=== PATIENT | female | born 1955 | race Hispanic/Latino ===

== ENCOUNTER 2018-08-03 23:13 | Emergency (ER) | payer MEDICAID ==
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
[2018-08-04 00:31] LABS: Basophils % (Auto) 0.2 % (0.0-1.8); Hematocrit 39.4 % (30.3-42.9); Hemoglobin 13.4 gm/dl (10.1-14.3); Lymphocytes # (Auto) 1.7 K/mm3 (1.2-5.4); Lymphocytes % (Auto) 18.7 % (13.4-35.0); Mean Corpuscular HGB Conc 34 % (30-34); Mean Corpuscular Volume 91 fl (79-97); Monocytes # (Auto) 0.9 K/mm3 (0.0-0.8); Monocytes % (Auto) 9.7 % (0.0-7.3); Platelet Count 228 K/mm3 (140-440); Red Blood Count 4.31 M/mm3 (3.65-5.03); Red Cell Distribution Width 15.1 % (13.2-15.2)
[2018-08-04] MEDS ORDERED: GEODON IM ONE (00:32)
[2018-08-04] MEDS ORDERED: WATER FOR INJ Sterile (PF) 10 ML ONE (00:46)
[2018-08-04 00:55] LABS: BUN/Creatinine Ratio 14; Blood Urea Nitrogen 11 mg/dL (7-17); Calcium 9.1 mg/dL (8.4-10.2); Hemolysis Index 2
[2018-08-04 00:58] LABS: Bilirubin,Urine NEG (Negative); Blood,Urine NEG (Negative); Color,Urine Yellow (Yellow); Protein,Urine <15 mg/dL mg/dL (Negative); Urobilinogen,Urine < 2.0 mg/dL (<2.0)
[2018-08-04 01:13] LABS: Amphetamine Screen,Urine PRESUMPTIVE NEGATIVE; Benzodiazepines Screen,Urine PRESUMPTIVE NEGATIVE; Cannabinoid Screen,Urine PRESUMPTIVE NEGATIVE; Cocaine Screen,Urine PRESUMPTIVE NEGATIVE; Methadone Screen,Urine PRESUMPTIVE NEGATIVE; Opiate Screen,Urine PRESUMPTIVE NEGATIVE
[2018-08-04 01:29] LABS: RBC,Urine < 1.0 /HPF (0.0-6.0)
[2018-08-04 08:40] VITALS: BP 161/90
== END 2018-08-04 12:23 ==
LOC: ED 23:13 → EEVIPCON 23:13 → 3A 08-04 10:00 → UNDOADMIN 08-04 10:00 → ED 08-04 12:23
DX: F23 Brief psychotic disorder (principal); F91.1 Conduct disorder, childhood-onset type; R45.6 Violent behavior; F32.9 Major depressive disorder, single episode, unspecified; I10 Essential (primary) hypertension; J44.9 Chronic obstructive pulmonary disease, unspecified; E03.9 Hypothyroidism, unspecified; F41.9 Anxiety disorder, unspecified; F17.200 Nicotine dependence, unspecified, uncomplicated
CPT/HCPCS: 36415; 80048; 80307; 81001; 84443; 85025; 96372; 99284; G0480; J3486; 80320

== ENCOUNTER 2018-08-04 10:20 | Inpatient (IN) | payer MEDICARE ==
[2018-08-04] MEDS: ATIVAN IM PRN (12:57)
[2018-08-04] MEDS: HALDOL IM PRN (12:57)
[2018-08-04] MEDS ORDERED: TYLENOL PO PRN (22:15)
[2018-08-04] MEDS ORDERED: APRESOLINE PO PRN (22:17)
[2018-08-04] MEDS ORDERED: DESYREL PO PRN (23:00)
[2018-08-05] MEDS: ARICEPT PO SCH ×2 (00:26→21:59)
[2018-08-05] MEDS: SINGULAIR PO SCH ×2 (00:27→22:01)
[2018-08-05] MEDS: CATAPRES PO SCH ×3 (00:30→22:00)
[2018-08-05] MEDS: PROTONIX PO SCH ×3 (00:31→22:01)
[2018-08-05] MEDS: ZESTRIL PO SCH ×2 (00:32→22:01)
[2018-08-05] MEDS: DUONEB *Not for PRN Use IH SCH ×4 (00:38→19:03)
[2018-08-05] MEDS: SYNTHROID PO SCH (07:25)
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
[2018-08-05] MEDS: HALDOL IM PRN (08:15)
[2018-08-05] MEDS ORDERED: EFFEXOR XR PO SCH (10:00)
[2018-08-05] MEDS ORDERED: CLOZAPINE 50 MG PO SCH (10:00)
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
[2018-08-05] MEDS: FEOSOL PO SCH (19:10)
[2018-08-05] MEDS ORDERED: CLOZAPINE 300 MG PO SCH (22:00)
[2018-08-06] MEDS: SYNTHROID PO SCH ×2 (06:10→06:48)
--- NOTE | 2018-08-06 09:47 | Progress Note ---
Subjective Date of service: 08/06/18 Principal diagnosis: Paranoid Schizophrenia Subjective Comment: The patient continues to be very agitated, disorganized, verbally and physically aggressive. She has not responded to PRN medications. Clozaril is not available in this hospital hence she has not been re-started on it. Objective - Criteria for Continued Treatment Criteria for Continued Treatment: Improving Level of Functioning, Stablizing Level of Functioning, Improving Emotional/Socia - Mental Status Mental Status: Alert - Objective Observation Participation Level: None Reason(s) For Not Participating: Behaviors Assessment and Plan - Patient Problems (1) Schizophrenia Current Visit: No Status: Acute Qualifiers: Schizophrenia type: unspecified Qualified Code(s): F20.9 - Schizophrenia, unspecified Plan to address problem: Patient will be admitted for inpatient psychiatric evaluation, medication adjustment and close monitoring The patient's behavior, mood, sleep and appetite will be closely monitored. Patient will be enrolled in individual and group therapeutic sessions and encouraged to attend. Patient will be provided with a safe and structured environment. Patient's physical health needs will be addressed by the Hospitalist. Social Assessment will be completed and the Shrimp Peeling Machine Operator will work with patient and family to ensure a suitable and safe disposition Medication adjustment will be made as clinically indicated: Will decrease Venlafaxine to 150mg qd as she appears to be manic Will increase Clonazepam to 1mg tid Start Depakote ER 500mg bid for mood stabilization Start Risperidone 2mg bid for severe psychosis Consider transferring patient out to a hospital she can get Clozaril.
[2018-08-06] MEDS: DUONEB *Not for PRN Use IH SCH ×2 (10:37→17:31)
[2018-08-06] MEDS: EFFEXOR XR PO SCH (13:34)
[2018-08-06] MEDS: RisperDAL PO SCH ×2 (13:35→22:47)
[2018-08-06] MEDS: FEOSOL PO SCH (13:35)
[2018-08-06] MEDS: PROTONIX PO SCH ×2 (13:35→22:46)
[2018-08-06] MEDS: CATAPRES PO SCH ×2 (14:01→22:46)
[2018-08-06] MEDS: ARICEPT PO SCH (22:46)
[2018-08-06] MEDS: ZESTRIL PO SCH (22:47)
[2018-08-06] MEDS: SINGULAIR PO SCH (22:47)
[2018-08-07] MEDS: BENADRYL IM PRN ×2 (04:42→19:54)
[2018-08-07] MEDS: ATIVAN IM PRN (04:42)
[2018-08-07] MEDS: GEODON IM PRN ×2 (04:44→19:54)
[2018-08-07] MEDS: SYNTHROID PO SCH (06:03)
[2018-08-07] MEDS: DUONEB *Not for PRN Use IH SCH ×4 (09:20→22:20)
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
[2018-08-07] MEDS ORDERED: WATER FOR INJ Sterile (PF) 10 ML ONE (16:17)
[2018-08-07] MEDS: CATAPRES PO SCH ×2 (17:35→23:47)
[2018-08-07] MEDS: RisperDAL PO SCH ×2 (17:36→22:31)
[2018-08-07] MEDS: EFFEXOR XR PO SCH (17:36)
[2018-08-07] MEDS: PROTONIX PO SCH (17:36)
[2018-08-07] MEDS: FEOSOL PO SCH (17:36)
[2018-08-07] MEDS: SINGULAIR PO SCH (22:31)
[2018-08-07] MEDS: ZESTRIL PO SCH (22:32)
[2018-08-07] MEDS: ARICEPT PO SCH (22:32)
--- NOTE | 2018-08-08 08:59 | Progress Note ---
Subjective Date of service: 08/08/18 Principal diagnosis: Paranoid Schizophrenia Subjective Comment: The patient continues to be very agitated, disorganized, verbally and physically aggressive. She is requiring multiple PRN medications. Clozaril is not available in this hospital hence she has not been re-started on it. Prescription for Clozaril was written so patient's son can get the Clozaril from outside pharmacy but he is out out of [place] currently. Will attempt to source the medication l ocally. Objective - Criteria for Continued Treatment Criteria for Continued Treatment: Improving Level of Functioning, Reducing Isolative Behaviors, Improving Treatment / Medication Compliance, Stablizing Level of Functioning, Improving Emotional/Socia - Mental Status Mental Status: Alert - Objective Observation Participation Level: None Reason(s) For Not Participating: Behaviors Assessment and Plan - Patient Problems (1) Schizophrenia Current Visit: No Status: Acute Qualifiers: Schizophrenia type: paranoid schizophrenia Qualified Code(s): F20.0 - Paranoid schizophrenia Plan to address problem: Patient will be admitted for inpatient psychiatric evaluation, medication adjustment and close monitoring The patient's behavior, mood, sleep and appetite will be closely monitored. Patient will be enrolled in individual and group therapeutic sessions and encouraged to attend. Patient will be provided with a safe and structured environment. Patient's physical health needs will be addressed by the Hospitalist. Social Assessment will be completed and the Administrative Assistant will work with patient and family to ensure a suitable and safe disposition Medication adjustment will be made as clinically indicated: Will decrease and discontinue Venlafaxine as she appears to be manic Will continue Clonazepam to 1mg tid Continue Depakote ER 500mg bid for mood stabilization Continue Risperidone 2mg bid for severe psychosis Will source for Clozaril at local pharmacy. CBC and CMP were ordered yesterday
[2018-08-08] MEDS: BENADRYL IM PRN (11:03)
[2018-08-08] MEDS: ATIVAN IM PRN (11:04)
[2018-08-08] MEDS: DUONEB *Not for PRN Use IH SCH ×3 (12:06→22:42)
[2018-08-08 12:26] LABS: Basophils # (Auto) 0.1 K/mm3 (0.0-0.1); Basophils % (Auto) 0.8 % (0.0-1.8); Hematocrit 41.4 % (30.3-42.9); Lymphocytes % (Auto) 21.7 % (13.4-35.0); Mean Corpuscular HGB Conc 34 % (30-34); Mean Corpuscular Volume 89 fl (79-97); Monocytes # (Auto) 0.7 K/mm3 (0.0-0.8); Monocytes % (Auto) 7.9 % (0.0-7.3); Platelet Count 255 K/mm3 (140-440); Red Blood Count 4.65 M/mm3 (3.65-5.03)
[2018-08-08 12:44] LABS: Alanine Aminotransferase 48 units/L (7-56); Albumin 4.3 g/dL (3.9-5); BUN/Creatinine Ratio 19; Blood Urea Nitrogen 15 mg/dL (7-17); Calcium 9.2 mg/dL (8.4-10.2); Hemolysis Index 12
[2018-08-08] MEDS: FEOSOL PO SCH (14:53)
[2018-08-08] MEDS: PROTONIX PO SCH ×2 (14:53→22:42)
[2018-08-08] MEDS: RisperDAL PO SCH ×2 (14:53→22:43)
[2018-08-08] MEDS: CATAPRES PO SCH ×2 (14:56→22:43)
[2018-08-08] MEDS: EFFEXOR XR PO SCH (14:58)
[2018-08-08 21:13] LABS: Chol/HDL Ratio 3.9 %
[2018-08-08] MEDS: SYNTHROID PO SCH (22:42)
[2018-08-08] MEDS: ZESTRIL PO SCH (22:43)
[2018-08-08] MEDS: SINGULAIR PO SCH (22:43)
[2018-08-08] MEDS: ARICEPT PO SCH (22:43)
--- NOTE | 2018-08-09 09:31 | Progress Note ---
Subjective Date of service: 08/09/18 Principal diagnosis: Paranoid Schizophrenia Subjective Comment: The patient continues to be very agitated, disorganized, verbally and physically aggressive. She is requiring multiple PRN medications. Clozaril was not re- started yesterday because patient refused blood draw. CBC is now done and it is acceptable. Objective - Criteria for Continued Treatment Criteria for Continued Treatment: Improving Level of Functioning, Improving Treatment / Medication Compliance, Confronting Denial of Illness, Stablizing Level of Functioning, Improving Emotional/Socia, Decreasing Frequency of Hospitalization - Mental Status Mental Status: Alert - Objective Observation Participation Level: None Reason(s) For Not Participating: Behaviors Assessment and Plan - Patient Problems (1) Schizophrenia Current Visit: No Status: Acute Qualifiers: Schizophrenia type: paranoid schizophrenia Qualified Code(s): F20.0 - Paranoid schizophrenia Plan to address problem: Patient will be admitted for inpatient psychiatric evaluation, medication adjustment and close monitoring The patient's behavior, mood, sleep and appetite will be closely monitored. Patient will be enrolled in individual and group therapeutic sessions and encouraged to attend. Patient will be provided with a safe and structured environment. Patient's physical health needs will be addressed by the Hospitalist. Social Assessment will be completed and the Cutter Operator Tile will work with patient and family to ensure a suitable and safe disposition Medication adjustment will be made as clinically indicated: Will decrease and discontinue Venlafaxine as she appears to be manic Will continue Clonazepam to 1mg tid increase Depakote ER to 750mg bid bid for mood stabilization Continue Risperidone 2mg bid for severe psychosis Restart Clozaril at 25mg bid and titrate up slowly.
[2018-08-09] MEDS ORDERED: CLOZARIL PO SCH ×2 (10:00)
[2018-08-09] MEDS: DUONEB *Not for PRN Use IH SCH ×2 (12:17→18:57)
[2018-08-09] MEDS: RisperDAL PO SCH ×2 (14:09→21:58)
[2018-08-09] MEDS: CATAPRES PO SCH ×2 (14:14→21:56)
[2018-08-09] MEDS: PROTONIX PO SCH ×2 (14:14→21:55)
[2018-08-09] MEDS: FEOSOL PO SCH (14:32)
[2018-08-09] MEDS: EFFEXOR XR PO SCH (14:32)
[2018-08-09] MEDS: SYNTHROID PO SCH (21:09)
[2018-08-09] MEDS: ARICEPT PO SCH (21:56)
[2018-08-09] MEDS: ZESTRIL PO SCH (21:58)
[2018-08-09] MEDS: SINGULAIR PO SCH (21:58)
[2018-08-10] MEDS: SYNTHROID PO SCH (05:23)
[2018-08-10] MEDS: DUONEB *Not for PRN Use IH SCH ×3 (08:17→16:13)
[2018-08-10] MEDS: CATAPRES PO SCH ×2 (09:49→23:21)
[2018-08-10] MEDS: RisperDAL PO SCH ×2 (09:49→23:18)
[2018-08-10] MEDS: EFFEXOR XR PO SCH (09:50)
[2018-08-10] MEDS: FEOSOL PO SCH (09:50)
[2018-08-10] MEDS: PROTONIX PO SCH ×3 (09:51→23:20)
--- NOTE | 2018-08-10 12:22 | Progress Note ---
Subjective Date of service: 08/10/18 Principal diagnosis: Paranoid Schizophrenia Subjective Comment: The patient suddenly made a remarkable and surprising turnaround. She is calm, pleasant, interactive and participating in therapeutic group activities. She has not required prn med for over 48 hrs. She refuses to take Depakote but accepts her other prescribed medications. She is cooperative with cares. She reports good and stable mood, denies SI/HI/AVH/Paranoia. Objective - Criteria for Continued Treatment Criteria for Continued Treatment: Improving Level of Functioning, Stablizing Level of Functioning, Improving Emotional/Socia - Mental Status Mental Status: Alert - Objective Observation Participation Level: Full Assessment and Plan - Patient Problems (1) Schizophrenia Current Visit: No Status: Acute Qualifiers: Schizophrenia type: paranoid schizophrenia Qualified Code(s): F20.0 - Paranoid schizophrenia Plan to address problem: Patient will be admitted for inpatient psychiatric evaluation, medication adjustment and close monitoring The patient's behavior, mood, sleep and appetite will be closely monitored. Patient will be enrolled in individual and group therapeutic sessions and encouraged to attend. Patient will be provided with a safe and structured environment. Patient's physical health needs will be addressed by the Hospitalist. Social Assessment will be completed and the Diamond Cleaner will work with patient and family to ensure a suitable and safe disposition Medication adjustment will be made as clinically indicated: Will decrease and discontinue Venlafaxine as she appears to be manic Will continue Clonazepam 1mg tid Will discontinue Depakote as she refuses to take it. Continue Risperidone 2mg bid for severe psychosis. Will plan to discharge in am tomorrow if she continues to do well.
[2018-08-10] MEDS ORDERED: EFFEXOR XR PO SCH (12:26)
[2018-08-10] MEDS ORDERED: PROVENTIL IH PRN (17:55)
[2018-08-10] MEDS: SINGULAIR PO SCH (23:18)
[2018-08-10] MEDS: ARICEPT PO SCH (23:18)
[2018-08-10] MEDS: ZESTRIL PO SCH (23:22)
[2018-08-11] MEDS: SYNTHROID PO SCH (06:19)
--- NOTE | 2018-08-11 07:59 | Discharge Summary ---
Providers - Providers Date of Admission: 08/04/18 12:47 Date of discharge: 08/11/18 Attending physician: NEPTALI THOMPSON MD [facility] Reason for admission: severe aggressive behaviors towards staff and other residents at the [facility]. Condition: Good Hospital course: The patient was provided inpatient psychiatric treatment with safe and supportive environment, group therapy, individual counseling, psychiatric medication, medication adjustment, adverse effect monitor, medical evaluation, medical treatment, social service assessment, family/social support meeting, placement assessment and psycho-education. The patients mood, anxiety, thoughts, stress management skill, cognition, impulse/anger control, motivation, understanding of disease, compliance to treatment and appreciation on family/social support are improved and stabilized. At the time of discharge, the patient had no suicidal ideas, no homicidal ideas, no aggressive thoughts, no endangering behavior and no debilitating adverse effects. The patient agreed on the treatment plan, understood the risk, benefit, alternative treatment, potential consequence of no treatment, and gave informed consent. The patient was advised to be compliant with medications, not to use drugs and not to drink alcohol. The patient understands that if suicidal ideas, homicidal ideas, or any endangering thoughts arise, the patient should immediately seek for emergent assistance including but not limited to crisis hot line and emergency room. Follow up with out-patient Psychiatrist and PCP within 14 - 21 days of discharge. Disposition: - TO HOME OR SELFCARE Allergies/Adverse Reactions: Allergies No Known Allergies Allergy (Unverified 08/04/18 07:14) Vital Signs: Last Vital Signs Temp 97.9 F 08/10/18 09:29 Pulse 68 08/10/18 09:49 Resp 18 08/10/18 19:35 BP 105/65 08/10/18 09:49 Pulse Ox 98 08/10/18 17:58 Last Lab: Laboratory Last Values WBC 9.3 K/mm3 (4.5-11.0) 08/08/18 12:20 RBC 4.65 M/mm3 (3.65-5.03) 08/08/18 12:20 Hgb 14.0 gm/dl (10.1-14.3) 08/08/18 12:20 Hct 41.4 % (30.3-42.9) 08/08/18 12:20 MCV 89 fl (79-97) 08/08/18 12:20 MCH 30 pg (28-32) 08/08/18 12:20 MCHC 34 % (30-34) 08/08/18 12:20 RDW 15.0 % (13.2-15.2) 08/08/18 12:20 Plt Count 255 K/mm3 (140-440) 08/08/18 12:20 Lymph % (Auto) 21.7 % (13.4-35.0) 08/08/18 12:20 [place] % (Auto) 7.9 % (0.0-7.3) H 08/08/18 12:20 Eos % (Auto) 0.0 % (0.0-4.3) 08/08/18 12:20 Baso % (Auto) 0.8 % (0.0-1.8) 08/08/18 12:20 Lymph # 2.0 K/mm3 (1.2-5.4) 08/08/18 12:20 [place] # 0.7 K/mm3 (0.0-0.8) 08/08/18 12:20 Eos # 0.0 K/mm3 (0.0-0.4) 08/08/18 12:20 Baso # 0.1 K/mm3 (0.0-0.1) 08/08/18 12:20 Seg Neutrophils % 69.6 % (40.0-70.0) 08/08/18 12:20 Seg Neutrophils # 6.5 K/mm3 (1.8-7.7) 08/08/18 12:20 Sodium 140 mmol/L (137-145) 08/08/18 12:20 Potassium 4.5 mmol/L (3.6-5.0) 08/08/18 12:20 Chloride 101.0 mmol/L (98-107) 08/08/18 12:20 Carbon Dioxide 24 mmol/L (22-30) 08/08/18 12:20 20 mmol/L 08/08/18 12:20 BUN 15 mg/dL (7-17) 08/08/18 12:20 0.8 mg/dL (0.7-1.2) 08/08/18 12:20 Estimated GFR > 60 ml/min 08/08/18 12:20 19 % 08/08/18 12:20 Glucose 128 mg/dL (65-100) H 08/08/18 12:20 POC Glucose 117 (70-105) H 08/04/18 17:06 6.4 % (4-6) H 08/08/18 12:20 Calcium 9.2 mg/dL (8.4-10.2) 08/08/18 12:20 0.40 mg/dL (0.1-1.2) 08/08/18 12:20 AST 61 units/L (5-40) H 08/08/18 12:20 ALT 48 units/L (7-56) 08/08/18 12:20 90 units/L (35-129) 08/08/18 12:20 6.5 g/dL (6.3-8.2) 08/08/18 12:20 4.3 g/dL (3.9-5) 08/08/18 12:20 2.0 % 08/08/18 12:20 Triglycerides 302 mg/dL (2-149) H 08/08/18 12:20 Cholesterol 195 mg/dL (50-199) 08/08/18 12:20 110 mg/dL (50-130) 08/08/18 12:20 50 mg/dL (40-59) 08/08/18 12:20 3.90 % 08/08/18 12:20 - Discharge Diagnoses (1) Schizophrenia Status: Acute Qualifiers: Schizophrenia type: paranoid schizophrenia Qualified Code(s): F20.0 - Paranoid schizophrenia Core Measure Documentation - Palliative Care Palliative Care/ Comfort Measures: Not Applicable - Core Measures Any of the following diagnoses?: none Exam - Constitutional Vitals: Temp Pulse Resp BP Pulse Ox 97.9 F 68 18 105/65 98 08/10/18 09:29 08/10/18 09:49 08/10/18 19:35 08/10/18 09:49 08/10/18 17:58 General appearance: Present: no acute distress, well-nourished - EENT Eyes: Present: PERRL, EOM intact ENT: hearing intact, clear oral mucosa - Neck Neck: Present: supple, normal ROM - Respiratory Respiratory effort: normal Plan Activity: no restrictions Weight Bearing Status: Full Weight Bearing Follow up with: OSMAR HDEZ MD [Primary Care Provider] - 7 Days Prescriptions: clonazePAM [KlonoPIN] 1 mg PO TID 30 Days #90 tablet risperiDONE [RisperDAL] 2 mg PO BID 30 Days #60 tablet
[2018-08-11] MEDS: FEOSOL PO SCH (10:28)
[2018-08-11] MEDS: CATAPRES PO SCH (10:29)
[2018-08-11] MEDS: RisperDAL PO SCH (10:29)
[2018-08-11] MEDS: PROTONIX PO SCH (10:29)
[2018-08-11 10:34] VITALS: BP 96/58
== END 2018-08-11 12:00 | DRG 885 ==
LOC: 3A 10:20 → UNDOADMIN 10:20 → 5A 12:47
PROVIDERS: ADMIT Psychiatry & Neurology Psychiatry; ATTEND Psychiatry & Neurology Psychiatry
DX: F20.0 Paranoid schizophrenia (principal); I10 Essential (primary) hypertension; J44.9 Chronic obstructive pulmonary disease, unspecified; F32.9 Major depressive disorder, single episode, unspecified; E03.9 Hypothyroidism, unspecified; Z79.899 Other long term (current) drug therapy; Z79.4 Long term (current) use of insulin; Z79.51 Long term (current) use of inhaled steroids
CPT/HCPCS: 36415; 80048; 80053; 80061; 80307; 80320; 81001; 82962; 83036; 84443; 85025; 94640; 96372; G0378; G0480; J1200; J1630; J2060; J3486